=== PATIENT | female | born 1990 | race Hispanic/Latino ===

== ENCOUNTER 2017-08-25 11:04 | Emergency (ER) | payer BC, MEDICAID ==
[2017-08-25 11:23] VITALS: O2SAT 99
--- NOTE | 2017-08-25 12:01 | ED PDOC ---
HPI: General Adult Time Seen by Provider: 08/25/17 11:27 Chief Complaint (Nursing): Back Pain History Per: Patient Additional Complaint(s): Pt. states earlier today she slipped going down some stairs outside but did not fall. States she felt mild lower back pain at that time. Later she slipped while walking outside landing flat on her back and striking the back of her head on the pavement. Pt. states she did not lose consciousness. Currently c/o occipital headache, non-radiating neck pain, non-radiating lower back pain. Denies LOC, N/V, previous TBI, abdominal pain, numbness, tingling. Past Medical History Reviewed: Historical Data, Nursing Documentation, Vital Signs Vital Signs: Last Vital Signs Temp 97.0 F L 08/25/17 11:20 Pulse 90 08/25/17 11:20 Resp 18 08/25/17 11:20 BP 117/79 08/25/17 11:20 Pulse Ox 99 08/25/17 12:03 - Medical History PMH: Seizures - Family History Family History: States: Unknown Family Hx - Immunization History Hx Tetanus Toxoid Vaccination: No Hx Influenza Vaccination: No Hx Pneumococcal Vaccination: No - Home Medications Home Medications: Ambulatory Orders Medication Instructions Recorded Lamotrigine [Lamictal] 150 mg PO BID 04/16/17 Levetiracetam [Keppra] 2,000 mg PO BID 04/16/17 - Allergies Allergies/Adverse Reactions: Allergies Allergy/AdvReac Type Severity Reaction Status Date / Time No Known Allergies Allergy Verified 07/18/17 22:42 Review of Systems ROS Statement: Except As Marked, All Systems Reviewed And Found Negative Musculoskeletal: Positive for: Neck Pain, Back Pain Neurological: Positive for: Headache Physical Exam - Reviewed Nursing Documentation Reviewed: Yes Vital Signs Reviewed: Yes - Physical Exam Appears: Positive for: Well, Non-toxic, No Acute Distress Head Exam: Positive for: ATRAUMATIC, NORMAL INSPECTION, NORMOCEPHALIC Skin: Positive for: Normal Color, Warm. Negative for: Rash Eye Exam: Positive for: EOMI, Normal appearance, PERRL ENT: Positive for: Normal ENT Inspection, TM Is/Are (no hemotympanum b/l) Neck: Positive for: Normal, Painless ROM Cardiovascular/Chest: Positive for: Regular Rate, Rhythm Respiratory: Positive for: CNT, Normal Breath Sounds Gastrointestinal/Abdominal: Positive for: Normal Exam, Soft. Negative for: Tenderness Back: Positive for: Normal Inspection. Negative for: L CVA Tenderness, R CVA Tenderness, Vertebral Tenderness (mid-line lumbar tenderness, b/l paracervical muscle tenderness, no midline cervical tenderness) Extremity: Positive for: Normal ROM Neurologic/Psych: Positive for: Alert, Oriented, Gait (steady). Negative for: Aphasia, Facial Droop - ECG O2 Sat by Pulse Oximetry: 99 - Progress ED Course And Treament: Tylenol 975mg PO, CT head, cervical, LS spine w/o contrast ordered. 1305 CT head w/o contrast: No acute intracranial pathology. CT cervical spine w/o contrast: Unremarkable CT of the cervical spine. CT LS spine w/o contrast: No significant bony central canal or neural foraminal stenosis identified. Generalized disc bulging and L4-5 flattens the ventral thecal sac without causing prominent stenosis. No bony central canal or neural foraminal stenosis identified. Pt. informed of results. Repeat neuro exam is non-focal. Pt. states she is feeling better. Instructed to return to ED immediately if symptoms persist or worsen or any other concerns arise. Disposition - Clinical Impression Clinical Impression: Back pain, Head injury - Patient ED Disposition Is Patient to be Admitted: No - Disposition Referrals: [facility] [Outside] Disposition: Routine/Home Disposition Time: 13:10 Condition: IMPROVED Instructions: Closed Head Injury (DC), Low Back Pain (DC), Upper Back Pain (DC ) Forms: [facility] (Bengali) Print Language: MONGOLIAN
--- NOTE | 2017-08-25 12:42 | CT ---
PROCEDURE: CT HEAD WITHOUT CONTRAST. HISTORY: trauma, hx of epilepsy COMPARISON: CT head dated 05/09/2016. TECHNIQUE: Axial computed tomography images were obtained through the head/brain without intravenous contrast. Radiation dose: Total exam DLP = 927.8 mGy-cm. This CT exam was performed using one or more of the following dose reduction techniques: Automated exposure control, adjustment of the mA and/or kV according to patient size, and/or use of iterative reconstruction technique. FINDINGS: HEMORRHAGE: No intracranial hemorrhage. BRAIN: No mass effect or edema. Stable nonspecific focus of hypoattenuation in the left basal ganglia (series 4, image 23). No atrophy or chronic microvascular ischemic changes. VENTRICLES: Unremarkable. No hydrocephalus. CALVARIUM: Unremarkable. PARANASAL SINUSES: Unremarkable as visualized. No significant inflammatory changes. MASTOID AIR CELLS: Unremarkable as visualized. No inflammatory changes. OTHER FINDINGS: None. IMPRESSION: No acute intracranial pathology. Stable nonspecific focus of hypoattenuation in the left basal ganglia. MRI of the brain can be obtained for further evaluation on a nonemergent basis.
--- NOTE | 2017-08-25 12:48 | CT ---
PROCEDURE: CT Cervical Spine without contrast HISTORY: Trauma, history of epilepsy COMPARISON: None available. TECHNIQUE: Axial computed tomography images were obtained of the cervical spine without the use of intravenous contrast. Coronal and sagittal reformatted images were created and reviewed. Radiation dose: Total exam DLP = 371.6 mGy-cm. This CT exam was performed using one or more of the following dose reduction techniques: Automated exposure control, adjustment of the mA and/or kV according to patient size, and/or use of iterative reconstruction technique. FINDINGS: VERTEBRAE: No fracture. Normal alignment. No destructive bony lesion. DISCS/SPINAL CANAL/NEURAL FORAMINA: No significant central canal or neural foraminal stenosis. Discs heights are grossly preserved. PARASPINAL SOFT TISSUES: Unremarkable. OTHER FINDINGS: None. IMPRESSION: Unremarkable CT of the cervical spine.
--- NOTE | 2017-08-25 13:06 | CT ---
PROCEDURE: CT Lumbar Spine without contrast HISTORY: trauma COMPARISON: None. TECHNIQUE: Axial computed tomography images were obtained of the lumbar spine without the use of intravenous contrast. Coronal and sagittal reformatted images were created and reviewed. Radiation dose: Total exam DLP = mGy-cm. This CT exam was performed using one or more of the following dose reduction techniques: Automated exposure control, adjustment of the mA and/or kV according to patient size, and/or use of iterative reconstruction technique. FINDINGS: VERTEBRAE: No destructive bone lesion appreciated. No fracture. Normal alignment. DISCS/SPINAL CANAL/NEURAL FORAMINA: L1-2: Unremarkable. L2-3: Unremarkable. L3-4: Unremarkable. L4-5: A generalized disc bulge flattens the ventral thecal sac without causing significant stenosis nevertheless. L5-S1: Unremarkable. PARASPINAL SOFT TISSUES: Unremarkable. OTHER FINDINGS: None. IMPRESSION: No significant bony central canal or neural foraminal stenosis identified. Generalized disc bulging and L4-5 flattens the ventral thecal sac without causing prominent stenosis. No bony central canal or neural foraminal stenosis identified. No fracture or spondylolisthesis which further evaluation by MRI can be provided if clinically warranted.
[2017-08-25 14:09] VITALS: BP 121/71; PULSE 71; RESP 15; TEMP 97.4
== END 2017-08-25 14:13 | disposition home or self-care (01) ==
LOC: H.ER 11:04
DX: S09.90XA Unspecified injury of head, initial encounter (principal); M54.9 Dorsalgia, unspecified; W01.0XXA Fall on same level from slipping, tripping and stumbling without subsequent striking against object, initial encounter; Y92.89 Other specified places as the place of occurrence of the external cause; G40.909 Epilepsy, unspecified, not intractable, without status epilepticus